=== PATIENT | male | born 1990 | race Hispanic/Latino ===

== ENCOUNTER 2020-08-02 09:26 | Inpatient (IN) | payer SELFPAY ==
[2020-08-02 10:05] LABS: Amphetamine Not Detected (NotDetected); Barbiturates Screen Not Detected (NotDetected); Benzodiazepine Screen Detected (NotDetected); Cocaine Metabolite Screen Not Detected (NotDetected); Methadone Not Detected (NotDetected); Methamphetamine Not Detected (NotDetected); Opiate Screen Not Detected (NotDetected); Oxycodone Screen Not Detected (NotDetected); Phencyclidine (PCP) Not Detected (NotDetected); THC/Cannabinoid Screen Not Detected (NotDetected); Tricyclic Screen Not Detected (NotDetected)
[2020-08-02 10:29] LABS: #Basophils 0.1 10x3/uL (0.0-0.2); #Eosinphils 0.1 10x3/uL (0.0-0.5); #Monocytes 0.8 10x3/uL (0.0-1.1); #Neutrophils 10.6 10x3/uL (1.5-8.4); %Basophils 0.6 % (0.0-2.0); %Eosinophils 0.6 % (0.0-6.0); %Lymphocytes 7.1 % (18.0-47.0); %Monocytes 6.6 % (0.0-10.0); %Neutrophils 84.6 % (40.0-75.0); Hemoglobin 8.1 g/dL (13.5-17.5); Mean Corpuscular HGB CONC 31.4 g/dL (32.0-36.0); Mean Corpuscular Hemoglobin 24.7 pg (27.0-33.0); Mean Corpuscular Volume 78.7 fl (81.2-95.1); Mean Platelet Volume 11.7 fl (7.4-10.4); Platelet Count 66 10x3/uL (150-450); RBC Distribution Width 24.7 % (11.5-14.5); Red Blood Cell (RBC) Count 3.28 10x6/uL (4.32-5.72); White Blood Cell (WBC) Count 12.5 10x3/uL (3.5-10.5)
[2020-08-02 10:44] LABS: INR-International Normal Ratio 1.2; PTT 30.3 sec (22.0-33.0); Prothrombin Time 13.5 sec (9.5-12.1)
[2020-08-02] MEDS ORDERED: Folic Acid 1 MG, Multivitamins, Adult 10 ML in Dextrose 5 %-0.45 % NaCl 1,000 ML IV SCH (10:45)
[2020-08-02] MEDS ORDERED: Thiamine HCl 200 MG/2 ML VIAL SLOW IVP SCH (10:45)
[2020-08-02 10:48] LABS: Acetaminophen Less than 6.0 mcg/mL (10.0-30.0); Alcohol 397 mg/dL (Less than 10); CK (CPK) 107 U/L (30-200); Salicylate Less than 8.0 mg/dL (15.0-30.0)
[2020-08-02 10:52] LABS: ALT (SGPT) 25 U/L (8-55); AST (SGOT) 226 U/L (5-34); Albumin 3.3 g/dL (3.5-5.0); Alkaline Phosphatase 340 U/L (40-110); Anion Gap 21 mmol/L (10-20); BUN (Urea Nitrogen) Less than 4 mg/dL (8.9-20.6); Bilirubin, Total 8.8 mg/dL (0.2-1.2); Calc. Creatinine Clearance 0 mL/min (70-130); Calcium 7.9 mg/dL (7.8-10.44); Carbon Dioxide 22 mmol/L (22-29); Chloride 94 mmol/L (98-107); Globulin 4.2 g/dL (2.4-3.5); Glucose 142 mg/dL (70-105); Lipase 54 U/L (8-78); Potassium 3.5 mmol/L (3.5-5.1); Protein, Total 7.5 g/dL (6.0-8.3); Sodium 133 mmol/L (136-145)
[2020-08-02] MEDS ORDERED: Piperacillin/Tazobactam 3.375 GM VIAL ONE (11:19)
[2020-08-02] MEDS ORDERED: metroNIDAZOLE 500 MG/100 ML BAG ONE (11:19)
[2020-08-02 11:23] LABS: Bilirubin 1+ (Negative); Blood, Urine Negative (Negative); Clarity Clear (Clear); Glucose, Urine (Dipstick) Normal (Negative); Ketone, Urine Negative (Negative); Leukocyte Negative (Negative); Nitrite Negative (Negative); Protein, Urine (Dipstick) Negative (Neg-Trace); Specific Gravity, Urine 1.005 (1.002-1.036)
[2020-08-02 12:13] LABS: Anisocytosis MODERATE=16-30 cells (100X) (0-5/hpf); Hypochromia SLIGHT = 6-15 cells (100X) (0-5/hpf); Microcytosis SLIGHT = 6-15 cells (100X) (0-5/hpf)
[2020-08-02 12:14] LABS: Platelet Morphology Comment Appears Decreased; Target Cells SLIGHT = 2-5 cells (100X) (0-1/hpf)
[2020-08-02] MEDS ORDERED: Calcium Carbonate 500 MG ChewTAB PO PRN (12:45)
[2020-08-02] MEDS ORDERED: Ondansetron PF 4 MG/2 ML Vial IVP PRN (12:45)
[2020-08-02] MEDS ORDERED: Senokot S 8.6-50 MG TAB PO PRN (12:45)
[2020-08-02] MEDS ORDERED: hydrALAZINE 20 MG/ML VIAL SLOW IVP PRN (12:57)
[2020-08-02 13:04] LABS: Lactic Acid 3.3 mmol/L (0.5-2.2)
[2020-08-02] MEDS ORDERED: Lorazepam 2 MG/ML VIAL ONE (14:58)
[2020-08-02] MEDS ORDERED: Sodium Chloride 0.9% 1,000 ML IV SCH (15:00)
[2020-08-02] MEDS: Lorazepam 2 MG/ML VIAL SLOW IVP PRN ×2 (16:04→21:18)
[2020-08-02 21:39] LABS: Lactic Acid 3.8 mmol/L (0.5-2.2)
[2020-08-02] MEDS ORDERED: Lorazepam 2 MG/ML VIAL SLOW IVP SCH (23:45)
[2020-08-03] MEDS ORDERED: Piperacillin/Tazobactam 4.5 GM in Sodium Chloride 0.9% 100 ML IVPB SCH (02:00)
[2020-08-03] MEDS: Lorazepam 2 MG/ML VIAL SLOW IVP PRN ×4 (02:10→23:54)
[2020-08-03 02:11] LABS: SARS-CoV-2 PCR by NAA Not Detected (NotDetected)
[2020-08-03 02:11] LABS: #Basophils 0.1 10x3/uL (0.0-0.2); #Eosinphils 0.1 10x3/uL (0.0-0.5); #Neutrophils 12.6 10x3/uL (1.5-8.4); %Basophils 0.5 % (0.0-2.0); %Eosinophils 0.3 % (0.0-6.0); %Lymphocytes 5.9 % (18.0-47.0); %Monocytes 6.8 % (0.0-10.0); %Neutrophils 85.8 % (40.0-75.0); Hemoglobin 6.8 g/dL (13.5-17.5); Mean Corpuscular HGB CONC 31.2 g/dL (32.0-36.0); Mean Corpuscular Volume 80.1 fl (81.2-95.1); Mean Platelet Volume 12.5 fl (7.4-10.4); Platelet Count 63 10x3/uL (150-450); RBC Distribution Width 24.8 % (11.5-14.5); Red Blood Cell (RBC) Count 2.72 10x6/uL (4.32-5.72); White Blood Cell (WBC) Count 14.7 10x3/uL (3.5-10.5)
[2020-08-03 02:15] LABS: ALT (SGPT) 28 U/L (8-55); AST (SGOT) 276 U/L (5-34); Albumin 3.3 g/dL (3.5-5.0); Alkaline Phosphatase 356 U/L (40-110); Anion Gap 22 mmol/L (10-20); BUN (Urea Nitrogen) Less than 4 mg/dL (8.9-20.6); Bilirubin, Total 11.4 mg/dL (0.2-1.2); Calc. Creatinine Clearance 216 mL/min (70-130); Calcium 7.7 mg/dL (7.8-10.44); Carbon Dioxide 18 mmol/L (22-29); Chloride 94 mmol/L (98-107); Globulin 4.3 g/dL (2.4-3.5); Glucose 121 mg/dL (70-105); Potassium 3.4 mmol/L (3.5-5.1); Protein, Total 7.6 g/dL (6.0-8.3); Sodium 131 mmol/L (136-145)
[2020-08-03] MEDS ORDERED: Sodium Chloride 0.9% 100 ML ONE (02:53)
[2020-08-03] MEDS ORDERED: Piperacillin/Tazobactam 4.5 GM VIAL ONE (03:10)
[2020-08-03] MEDS ORDERED: Lorazepam 2 MG/ML VIAL SLOW IVP SCH ×2 (03:15→08:15)
[2020-08-03] MEDS ORDERED: Potassium Chloride 20 MEQ TAB PO SCH (03:30)
[2020-08-03] MEDS ORDERED: Lactated Ringer's 1,000 ML IV SCH (03:30)
[2020-08-03] MEDS ORDERED: Metoprolol Tartrate 5 MG/5 ML VIAL IVP SCH (04:30)
[2020-08-03 05:11] LABS: #Basophils 0.1 10x3/uL (0.0-0.2); #Monocytes 0.8 10x3/uL (0.0-1.1); #Neutrophils 11.4 10x3/uL (1.5-8.4); %Basophils 0.4 % (0.0-2.0); %Eosinophils 0.1 % (0.0-6.0); %Lymphocytes 6.1 % (18.0-47.0); %Neutrophils 86.3 % (40.0-75.0); Mean Corpuscular HGB CONC 31.3 g/dL (32.0-36.0); Mean Corpuscular Hemoglobin 24.6 pg (27.0-33.0); Mean Corpuscular Volume 78.8 fl (81.2-95.1); Mean Platelet Volume 12.6 fl (7.4-10.4); Platelet Count 60 10x3/uL (150-450); RBC Distribution Width 25.2 % (11.5-14.5); Red Blood Cell (RBC) Count 3.25 10x6/uL (4.32-5.72); White Blood Cell (WBC) Count 13.2 10x3/uL (3.5-10.5)
[2020-08-03 05:21] LABS: ALT (SGPT) 26 U/L (8-55); AST (SGOT) 298 U/L (5-34); Albumin 3.2 g/dL (3.5-5.0); Alkaline Phosphatase 344 U/L (40-110); Anion Gap 21 mmol/L (10-20); BUN (Urea Nitrogen) Less than 4 mg/dL (8.9-20.6); CRP (Inflammatory) 6.46 mg/dL (= or < 0.5); Calc. Creatinine Clearance 213 mL/min (70-130); Calcium 7.9 mg/dL (7.8-10.44); Carbon Dioxide 18 mmol/L (22-29); Cardiac Risk 27.8 (Less than 4.5); Chloride 97 mmol/L (98-107); Globulin 4.3 g/dL (2.4-3.5); Glucose 123 mg/dL (70-105); HDL Cholesterol 8 mg/dL (>60 Neg Risk); Iron 92 ug/dL (65-175); Iron Binding Capacity, Total 203 mcg/dL (261-462); LDL Cholesterol, Calculated 150 mg/dL; Magnesium 1.3 mg/dL (1.6-2.6); Potassium 3.7 mmol/L (3.5-5.1); Protein, Total 7.5 g/dL (6.0-8.3); Sodium 132 mmol/L (136-145)
[2020-08-03 05:27] LABS: Cholesterol 222 mg/dl (< 200 Desired); Triglycerides 318 mg/dL (Less than 150)
[2020-08-03 08:09] LABS: Lactic Acid 2.9 mmol/L (0.5-2.2)
[2020-08-03] MEDS: Thiamine 100 MG TAB PO SCH (08:40)
[2020-08-03] MEDS: Folic Acid 1 MG TAB PO SCH (08:40)
[2020-08-03] MEDS: Piperacillin/Tazobactam 3.375 GM in Sodium Chloride 0.9% 100 ML IVPB SCH ×3 (08:42→23:53)
[2020-08-03 08:47] LABS: Ferritin 143.02 ng/mL (22-322)
[2020-08-03 08:52] LABS: HBSAg Index 0.13 S/CO (0-0.99); Hep B Surf Ag Non-Reactive S/CO (NonReactive)
[2020-08-03 08:56] LABS: Hemoglobin 7.5 g/dL (13.5-17.5)
[2020-08-03 09:00] LABS: INR-International Normal Ratio 1.3; Prothrombin Time 14.1 sec (9.5-12.1)
[2020-08-03] MEDS: Acetaminophen 325 MG TAB PO PRN (09:13)
[2020-08-03] MEDS: chlordiazePOXIDE HCl 25 MG CAP PO SCH ×3 (09:30→20:44)
[2020-08-03] MEDS: Multivit, Therapeutic 1 TAB PO SCH (09:33)
[2020-08-03] MEDS: Pantoprazole 80 MG in Sodium Chloride 0.9% 100 ML IVPB SCH ×2 (10:19→19:59)
[2020-08-03] MEDS: Sodium Chloride 0.9% 1,000 ML IV SCH ×2 (10:21→19:47)
[2020-08-03 12:59] LABS: Hemoglobin 7.4 g/dL (13.5-17.5)
[2020-08-03] MEDS ORDERED: Vancomycin HCl 1.5 GM in Sodium Chloride 0.9% 250 ML 300 ML IVPB SCH (13:00)
[2020-08-03] MEDS: VANCOMYCIN 1.25 GM/250 ML BAG 1.25 GM in Premix Bag 1 BAG IVPB SCH ×2 (13:36→20:45)
[2020-08-03 15:04] LABS: Hep A IgM AB Non-Reactive (NonReactive); Hep A IgM S/CO 0.39 S/CO (0-0.79); Hep C IgG Ab Non-Reactive (NonReactive); Hep C Index 0.08 S/CO (0-0.79); Hepatitis B Core IgM Abs Non-Reactive (NonReactive)
[2020-08-04] MEDS: Lorazepam 2 MG/ML VIAL SLOW IVP PRN ×4 (03:27→19:06)
[2020-08-04 04:38] LABS: Vancomycin, Trough 9.1 ug/mL
[2020-08-04 04:40] LABS: CRP (Inflammatory) 10.73 mg/dL (= or < 0.5); Magnesium 1.5 mg/dL (1.6-2.6)
[2020-08-04 04:41] LABS: #Basophils 0.1 10x3/uL (0.0-0.2); #Eosinphils 0.1 10x3/uL (0.0-0.5); #Monocytes 0.9 10x3/uL (0.0-1.1); #Neutrophils 11.7 10x3/uL (1.5-8.4); %Basophils 0.7 % (0.0-2.0); %Eosinophils 0.6 % (0.0-6.0); %Lymphocytes 5.4 % (18.0-47.0); %Monocytes 6.8 % (0.0-10.0); %Neutrophils 85.5 % (40.0-75.0); ALT (SGPT) 23 U/L (8-55); AST (SGOT) 177 U/L (5-34); Albumin 2.8 g/dL (3.5-5.0); Alkaline Phosphatase 245 U/L (40-110); Anion Gap 17 mmol/L (10-20); BUN (Urea Nitrogen) Less than 4 mg/dL (8.9-20.6); Bilirubin, Total 14.7 mg/dL (0.2-1.2); Calc. Creatinine Clearance 216 mL/min (70-130); Calcium 7.6 mg/dL (7.8-10.44); Carbon Dioxide 21 mmol/L (22-29); Globulin 3.8 g/dL (2.4-3.5); Glucose 130 mg/dL (70-105); Hemoglobin 7.2 g/dL (13.5-17.5); Lipase 36 U/L (8-78); Mean Corpuscular HGB CONC 29.1 g/dL (32.0-36.0); Mean Corpuscular Hemoglobin 24.8 pg (27.0-33.0); Mean Corpuscular Volume 85.2 fl (81.2-95.1); Mean Platelet Volume 12.5 fl (7.4-10.4); Platelet Count 63 10x3/uL (150-450); Potassium 3.5 mmol/L (3.5-5.1); Protein, Total 6.6 g/dL (6.0-8.3); RBC Distribution Width 26.3 % (11.5-14.5); Sodium 140 mmol/L (136-145); White Blood Cell (WBC) Count 13.7 10x3/uL (3.5-10.5)
[2020-08-04 04:42] LABS: Chloride 106 mmol/L (98-107)
[2020-08-04 04:43] LABS: INR-International Normal Ratio 1.5; Prothrombin Time 16.6 sec (9.5-12.1)
[2020-08-04] MEDS: VANCOMYCIN 1.25 GM/250 ML BAG 1.25 GM in Premix Bag 1 BAG IVPB SCH (05:51)
[2020-08-04] MEDS: Sodium Chloride 0.9% 1,000 ML IV SCH (05:53)
[2020-08-04] MEDS ORDERED: Vancomycin HCl 500 MG in Sodium Chloride 0.9% 100 ML IVPB SCH ×2 (06:30→08:00)
[2020-08-04] MEDS ORDERED: PHOS-NAK 1 PKT PACK PO SCH (06:30)
[2020-08-04] MEDS: Pantoprazole 80 MG in Sodium Chloride 0.9% 100 ML IVPB SCH (06:54)
[2020-08-04] MEDS: Multivit, Therapeutic 1 TAB PO SCH (08:15)
[2020-08-04] MEDS: Folic Acid 1 MG TAB PO SCH (08:15)
[2020-08-04] MEDS: Thiamine 100 MG TAB PO SCH (08:15)
[2020-08-04] MEDS: chlordiazePOXIDE HCl 25 MG CAP PO SCH ×3 (08:15→20:29)
[2020-08-04] MEDS: Piperacillin/Tazobactam 3.375 GM in Sodium Chloride 0.9% 100 ML IVPB SCH ×2 (08:37→16:04)
[2020-08-04] MEDS: VANCOMYCIN 1.75 GM in Sodium Chloride 0.9% 500 ML IVPB SCH ×2 (12:51→21:55)
[2020-08-04] MEDS ORDERED: Ketorolac Tromethamine 30 MG/ML VIAL IVP PRN (14:56)
[2020-08-04] MEDS ORDERED: Magnesium 2 GM/50 ML 2 GM in Premix Bag 1 BAG IVPB SCH (15:00)
[2020-08-04] MEDS: Acetaminophen 325 MG TAB PO PRN (20:30)
[2020-08-05] MEDS: Lorazepam 2 MG/ML VIAL SLOW IVP PRN ×5 (00:35→13:00)
[2020-08-05] MEDS: Piperacillin/Tazobactam 3.375 GM in Sodium Chloride 0.9% 100 ML IVPB SCH ×3 (01:18→15:59)
[2020-08-05] MEDS: VANCOMYCIN 1.75 GM in Sodium Chloride 0.9% 500 ML IVPB SCH (05:00)
[2020-08-05 05:24] LABS: #Basophils 0.1 10x3/uL (0.0-0.2); #Eosinphils 0.2 10x3/uL (0.0-0.5); #Monocytes 1.1 10x3/uL (0.0-1.1); #Neutrophils 10.9 10x3/uL (1.5-8.4); %Basophils 0.4 % (0.0-2.0); %Eosinophils 1.6 % (0.0-6.0); %Lymphocytes 8.3 % (18.0-47.0); %Monocytes 7.9 % (0.0-10.0); %Neutrophils 81.1 % (40.0-75.0); Mean Corpuscular HGB CONC 29.3 g/dL (32.0-36.0); Mean Corpuscular Hemoglobin 25.5 pg (27.0-33.0); Mean Corpuscular Volume 86.9 fl (81.2-95.1); Mean Platelet Volume 12.8 fl (7.4-10.4); Platelet Count 99 10x3/uL (150-450); RBC Distribution Width 26.8 % (11.5-14.5); Red Blood Cell (RBC) Count 2.75 10x6/uL (4.32-5.72); White Blood Cell (WBC) Count 13.4 10x3/uL (3.5-10.5)
[2020-08-05 05:28] LABS: Vancomycin, Trough 22.2 ug/mL
[2020-08-05] MEDS ORDERED: Lorazepam 2 MG/ML VIAL SLOW IVP SCH (05:30)
[2020-08-05 05:31] LABS: ALT (SGPT) 20 U/L (8-55); AST (SGOT) 116 U/L (5-34); Albumin 2.8 g/dL (3.5-5.0); Alkaline Phosphatase 207 U/L (40-110); Anion Gap 15 mmol/L (10-20); BUN (Urea Nitrogen) Less than 4 mg/dL (8.9-20.6); Bilirubin, Total 17.5 mg/dL (0.2-1.2); Calc. Creatinine Clearance 198 mL/min (70-130); Calcium 7.5 mg/dL (7.8-10.44); Carbon Dioxide 21 mmol/L (22-29); Chloride 103 mmol/L (98-107); Globulin 3.8 g/dL (2.4-3.5); Glucose 126 mg/dL (70-105); Potassium 3.4 mmol/L (3.5-5.1); Protein, Total 6.6 g/dL (6.0-8.3); Sodium 136 mmol/L (136-145)
[2020-08-05 05:40] LABS: INR-International Normal Ratio 1.5; Prothrombin Time 16.4 sec (9.5-12.1)
[2020-08-05 06:01] LABS: Magnesium 1.7 mg/dL (1.6-2.6); Phosphorus Less than 1.0 mg/dL (2.3-4.7)
[2020-08-05] MEDS ORDERED: Diazepam 10 MG/2 ML SYRINGE IVP SCH (06:30)
[2020-08-05] MEDS ORDERED: Sodium Chloride 0.9% 50 ML ONE (07:24)
[2020-08-05] MEDS ORDERED: Phytonadione 10 MG/ML AMP ONE (07:24)
[2020-08-05] MEDS ORDERED: Sodium Phosphate 15 MMOL in Sodium Chloride 0.9% 250 ML 250 ML IVPB SCH (07:30)
[2020-08-05] MEDS: Multivit, Therapeutic 1 TAB PO SCH (08:03)
[2020-08-05] MEDS: Thiamine 100 MG TAB PO SCH (08:03)
[2020-08-05] MEDS: prednisoLONE 15 MG/5 ML UDCUP PO SCH (08:03)
[2020-08-05] MEDS: Folic Acid 1 MG TAB PO SCH (08:04)
[2020-08-05] MEDS: chlordiazePOXIDE HCl 25 MG CAP PO SCH ×3 (08:04→20:38)
[2020-08-05] MEDS ORDERED: Haloperidol Lactate 5 MG/ML VIAL ONE (09:30)
[2020-08-05] MEDS: Haloperidol Lactate 5 MG/ML VIAL IM PRN ×4 (09:34→20:37)
[2020-08-05] MEDS: Phytonadione 10 MG, Admixture Fee 1 EACH in Sodium Chloride 0.9% 50 ML IVPB SCH (10:49)
[2020-08-05] MEDS: Vancomycin 1.5 GRAM/300 ML BAG 1.5 GM in Premix Bag 1 BAG IVPB SCH (17:32)
[2020-08-06] MEDS: Haloperidol Lactate 5 MG/ML VIAL IM PRN ×3 (00:30→22:03)
[2020-08-06] MEDS: Piperacillin/Tazobactam 3.375 GM in Sodium Chloride 0.9% 100 ML IVPB SCH ×3 (00:36→15:19)
[2020-08-06] MEDS: Lorazepam 2 MG/ML VIAL SLOW IVP PRN ×2 (01:50→23:50)
[2020-08-06] MEDS: Vancomycin 1.5 GRAM/300 ML BAG 1.5 GM in Premix Bag 1 BAG IVPB SCH ×2 (01:50→10:37)
[2020-08-06 05:34] LABS: #Eosinphils 0.1 10x3/uL (0.0-0.5); #Monocytes 1.2 10x3/uL (0.0-1.1); #Neutrophils 11.3 10x3/uL (1.5-8.4); %Basophils 0.3 % (0.0-2.0); %Eosinophils 0.7 % (0.0-6.0); %Lymphocytes 7.4 % (18.0-47.0); %Monocytes 8.8 % (0.0-10.0); %Neutrophils 81.8 % (40.0-75.0); Hemoglobin 7.1 g/dL (13.5-17.5); Mean Corpuscular HGB CONC 28.3 g/dL (32.0-36.0); Mean Corpuscular Hemoglobin 25.5 pg (27.0-33.0); Mean Corpuscular Volume 90.3 fl (81.2-95.1); Mean Platelet Volume 12.2 fl (7.4-10.4); Platelet Count 143 10x3/uL (150-450); RBC Distribution Width 27.8 % (11.5-14.5); Red Blood Cell (RBC) Count 2.78 10x6/uL (4.32-5.72); White Blood Cell (WBC) Count 13.8 10x3/uL (3.5-10.5)
[2020-08-06 05:42] LABS: Anion Gap 20 mmol/L (10-20); Globulin 3.4 g/dL (2.4-3.5)
[2020-08-06 05:44] LABS: ALT (SGPT) 25 U/L (8-55); AST (SGOT) 122 U/L (5-34); Albumin 2.6 g/dL (3.5-5.0); Alkaline Phosphatase 176 U/L (40-110); BUN (Urea Nitrogen) 5 mg/dL (8.9-20.6); Bilirubin, Total 17.4 mg/dL (0.2-1.2); Calc. Creatinine Clearance 207 mL/min (70-130); Calcium 7.4 mg/dL (7.8-10.44); Carbon Dioxide 20 mmol/L (22-29); Chloride 106 mmol/L (98-107); Glucose 111 mg/dL (70-105); Potassium 3.5 mmol/L (3.5-5.1); Sodium 142 mmol/L (136-145)
[2020-08-06 05:47] LABS: INR-International Normal Ratio 1.3; PTT 24.5 sec (22.0-33.0); Prothrombin Time 14.6 sec (9.5-12.1)
[2020-08-06] MEDS ORDERED: Sodium Phosphate 30 MMOL in Sodium Chloride 0.9% 250 ML 250 ML IVPB SCH (06:30)
[2020-08-06] MEDS: Folic Acid 1 MG TAB PO SCH (09:01)
[2020-08-06] MEDS: chlordiazePOXIDE HCl 25 MG CAP PO SCH ×3 (09:01→21:22)
[2020-08-06] MEDS: Multivit, Therapeutic 1 TAB PO SCH (09:01)
[2020-08-06] MEDS: Thiamine 100 MG TAB PO SCH (09:01)
[2020-08-06] MEDS: prednisoLONE 15 MG/5 ML UDCUP PO SCH (09:04)
[2020-08-06] MEDS ORDERED: Phytonadione 10 MG/ML AMP ONE (09:45)
[2020-08-06] MEDS ORDERED: Sodium Chloride 0.9% 50 ML ONE (09:45)
[2020-08-06] MEDS: Phytonadione 10 MG, Admixture Fee 1 EACH in Sodium Chloride 0.9% 50 ML IVPB SCH (09:56)
[2020-08-06 16:25] LABS: Vancomycin, Trough 24.7 ug/mL
[2020-08-06 17:21] LABS: EliA Vaculitis New Method **** NEW METHOD ****; Mitochondrial Ab 1.6 U/mL (<4 Negative)
[2020-08-07] MEDS: Piperacillin/Tazobactam 3.375 GM in Sodium Chloride 0.9% 100 ML IVPB SCH ×4 (00:15→23:40)
[2020-08-07] MEDS: Lorazepam 2 MG/ML VIAL SLOW IVP PRN (02:16)
[2020-08-07 05:13] LABS: #Monocytes 1.1 10x3/uL (0.0-1.1); #Neutrophils 11.1 10x3/uL (1.5-8.4); %Basophils 0.2 % (0.0-2.0); %Eosinophils 0.1 % (0.0-6.0); %Lymphocytes 7.4 % (18.0-47.0); %Monocytes 8.5 % (0.0-10.0); %Neutrophils 82.5 % (40.0-75.0); Hemoglobin 7.9 g/dL (13.5-17.5); Mean Corpuscular HGB CONC 29.5 g/dL (32.0-36.0); Mean Corpuscular Hemoglobin 26.1 pg (27.0-33.0); Mean Corpuscular Volume 88.4 fl (81.2-95.1); Mean Platelet Volume 12.1 fl (7.4-10.4); Platelet Count 222 10x3/uL (150-450); RBC Distribution Width 28.4 % (11.5-14.5); Red Blood Cell (RBC) Count 3.03 10x6/uL (4.32-5.72); White Blood Cell (WBC) Count 13.5 10x3/uL (3.5-10.5)
[2020-08-07 05:31] LABS: ALT (SGPT) 31 U/L (8-55); AST (SGOT) 123 U/L (5-34); Albumin 2.7 g/dL (3.5-5.0); Alkaline Phosphatase 174 U/L (40-110); Anion Gap 15 mmol/L (10-20); BUN (Urea Nitrogen) 4 mg/dL (8.9-20.6); Bilirubin, Total 17.2 mg/dL (0.2-1.2); Calc. Creatinine Clearance 213 mL/min (70-130); Calcium 7.8 mg/dL (7.8-10.44); Carbon Dioxide 23 mmol/L (22-29); Chloride 107 mmol/L (98-107); Globulin 3.5 g/dL (2.4-3.5); Glucose 134 mg/dL (70-105); Protein, Total 6.2 g/dL (6.0-8.3); Sodium 142 mmol/L (136-145)
[2020-08-07] MEDS ORDERED: Vancomycin 1.5 GRAM/300 ML BAG 1.5 GM in Premix Bag 1 BAG IVPB SCH (06:00)
[2020-08-07 06:01] LABS: INR-International Normal Ratio 1.2; PTT 25.2 sec (22.0-33.0); Prothrombin Time 13.6 sec (9.5-12.1)
[2020-08-07] MEDS: Haloperidol Lactate 5 MG/ML VIAL IM PRN (06:18)
[2020-08-07 08:47] LABS: Phosphorus Less than 1.0 mg/dL (2.3-4.7)
[2020-08-07] MEDS: Phytonadione 10 MG, Admixture Fee 1 EACH in Sodium Chloride 0.9% 50 ML IVPB SCH (09:38)
[2020-08-07] MEDS: Multivit, Therapeutic 1 TAB PO SCH (09:39)
[2020-08-07] MEDS: Thiamine 100 MG TAB PO SCH (09:39)
[2020-08-07] MEDS: Potassium Chloride 20 MEQ TAB PO SCH ×2 (09:39→15:59)
[2020-08-07] MEDS: Folic Acid 1 MG TAB PO SCH (09:39)
[2020-08-07] MEDS: chlordiazePOXIDE HCl 25 MG CAP PO SCH ×3 (09:39→22:00)
[2020-08-07] MEDS: prednisoLONE 15 MG/5 ML UDCUP PO SCH (09:40)
[2020-08-07] MEDS ORDERED: Potassium Phosphate 30 MMOL in Sodium Chloride 0.9% 250 ML 250 ML IVPB SCH (12:00)
[2020-08-07 18:37] LABS: Smooth Muscle Total ABS 6 Units (0-19)
[2020-08-07] MEDS: Enoxaparin Sodium 40 MG/0.4 ML SYRINGE SC SCH (22:00)
[2020-08-08] MEDS: Haloperidol Lactate 5 MG/ML VIAL IM PRN (02:15)
[2020-08-08 04:46] LABS: #Monocytes 1.3 10x3/uL (0.0-1.1); #Neutrophils 12.1 10x3/uL (1.5-8.4); %Basophils 0.2 % (0.0-2.0); %Eosinophils 0.1 % (0.0-6.0); %Monocytes 9.1 % (0.0-10.0); %Neutrophils 83.8 % (40.0-75.0); Mean Corpuscular HGB CONC 29.2 g/dL (32.0-36.0); Mean Corpuscular Hemoglobin 26.1 pg (27.0-33.0); Mean Corpuscular Volume 89.5 fl (81.2-95.1); Mean Platelet Volume 11.9 fl (7.4-10.4); Platelet Count 290 10x3/uL (150-450); RBC Distribution Width 29.9 % (11.5-14.5); Red Blood Cell (RBC) Count 3.06 10x6/uL (4.32-5.72); White Blood Cell (WBC) Count 14.5 10x3/uL (3.5-10.5)
[2020-08-08 05:08] LABS: ALT (SGPT) 39 U/L (8-55); AST (SGOT) 125 U/L (5-34); Albumin 2.7 g/dL (3.5-5.0); Alkaline Phosphatase 159 U/L (40-110); Anion Gap 15 mmol/L (10-20); BUN (Urea Nitrogen) 6 mg/dL (8.9-20.6); Bilirubin, Total 16.4 mg/dL (0.2-1.2); Calc. Creatinine Clearance 234 mL/min (70-130); Calcium 7.9 mg/dL (7.8-10.44); Carbon Dioxide 22 mmol/L (22-29); Chloride 109 mmol/L (98-107); Globulin 3.4 g/dL (2.4-3.5); Glucose 120 mg/dL (70-105); Potassium 3.5 mmol/L (3.5-5.1); Protein, Total 6.1 g/dL (6.0-8.3); Sodium 142 mmol/L (136-145)
[2020-08-08 05:10] LABS: Phosphorus 1.2 mg/dL (2.3-4.7)
[2020-08-08 05:15] LABS: INR-International Normal Ratio 1.3; PTT 26.6 sec (22.0-33.0); Prothrombin Time 14.2 sec (9.5-12.1)
[2020-08-08] MEDS ORDERED: Potassium Phosphate 30 MMOL in Sodium Chloride 0.9% 250 ML 250 ML IVPB SCH (07:30)
[2020-08-08] MEDS: Potassium Chloride 20 MEQ TAB PO SCH ×2 (08:42→17:22)
[2020-08-08] MEDS: Folic Acid 1 MG TAB PO SCH (08:42)
[2020-08-08] MEDS: Thiamine 100 MG TAB PO SCH (08:42)
[2020-08-08] MEDS: chlordiazePOXIDE HCl 25 MG CAP PO SCH ×3 (08:42→22:31)
[2020-08-08] MEDS: prednisoLONE 15 MG/5 ML UDCUP PO SCH (08:42)
[2020-08-08] MEDS: Multivit, Therapeutic 1 TAB PO SCH (08:42)
[2020-08-08] MEDS: Phytonadione 10 MG, Admixture Fee 1 EACH in Sodium Chloride 0.9% 50 ML IVPB SCH (08:43)
[2020-08-08] MEDS: Piperacillin/Tazobactam 3.375 GM in Sodium Chloride 0.9% 100 ML IVPB SCH ×3 (08:43→23:00)
[2020-08-08 17:57] LABS: Vancomycin, Trough Less than 1.1 ug/mL
[2020-08-08] MEDS ORDERED: Guaifenesin DM 100-10/5 ML UDCUP PO PRN (22:25)
[2020-08-08] MEDS: Enoxaparin Sodium 40 MG/0.4 ML SYRINGE SC SCH (22:31)
[2020-08-08] MEDS: Lorazepam 2 MG/ML VIAL SLOW IVP PRN (22:45)
[2020-08-09] MEDS: Lorazepam 2 MG/ML VIAL SLOW IVP PRN ×4 (03:56→21:25)
[2020-08-09 05:25] LABS: ALT (SGPT) 48 U/L (8-55); AST (SGOT) 136 U/L (5-34); Albumin 2.8 g/dL (3.5-5.0); Alkaline Phosphatase 158 U/L (40-110); Anion Gap 15 mmol/L (10-20); BUN (Urea Nitrogen) 9 mg/dL (8.9-20.6); Bilirubin, Total 16.9 mg/dL (0.2-1.2); Calc. Creatinine Clearance 205 mL/min (70-130); Calcium 8.3 mg/dL (7.8-10.44); Carbon Dioxide 23 mmol/L (22-29); Chloride 107 mmol/L (98-107); Globulin 3.4 g/dL (2.4-3.5); Glucose 126 mg/dL (70-105); Potassium 4.1 mmol/L (3.5-5.1); Protein, Total 6.2 g/dL (6.0-8.3); Sodium 141 mmol/L (136-145)
[2020-08-09 06:23] LABS: INR-International Normal Ratio 1.3; PTT 26.1 sec (22.0-33.0)
[2020-08-09] MEDS: chlordiazePOXIDE HCl 25 MG CAP PO SCH ×2 (08:16→14:16)
[2020-08-09] MEDS ORDERED: Phytonadione 10 MG/ML AMP ONE (08:19)
[2020-08-09] MEDS ORDERED: Sodium Chloride 0.9% 50 ML ONE (08:19)
[2020-08-09] MEDS: Thiamine 100 MG TAB PO SCH (08:24)
[2020-08-09] MEDS: Multivit, Therapeutic 1 TAB PO SCH (08:24)
[2020-08-09] MEDS: Phytonadione 10 MG, Admixture Fee 1 EACH in Sodium Chloride 0.9% 50 ML IVPB SCH (08:24)
[2020-08-09] MEDS: Potassium Chloride 20 MEQ TAB PO SCH ×2 (08:24→16:00)
[2020-08-09] MEDS: Folic Acid 1 MG TAB PO SCH (08:24)
[2020-08-09] MEDS: Piperacillin/Tazobactam 3.375 GM in Sodium Chloride 0.9% 100 ML IVPB SCH ×2 (08:24→16:00)
[2020-08-09] MEDS: prednisoLONE 15 MG/5 ML UDCUP PO SCH (08:25)
[2020-08-09] MEDS: Enoxaparin Sodium 40 MG/0.4 ML SYRINGE SC SCH (20:04)
[2020-08-09] MEDS: Guaifenesin DM 100-10/5 ML UDCUP PO PRN (21:16)
[2020-08-10] MEDS: prednisoLONE 15 MG/5 ML UDCUP PO SCH (06:45)
[2020-08-10] MEDS: Multivit, Therapeutic 1 TAB PO SCH (11:49)
[2020-08-10] MEDS: Potassium Chloride 20 MEQ TAB PO SCH ×2 (11:49→16:34)
[2020-08-10] MEDS: Phytonadione 10 MG, Admixture Fee 1 EACH in Sodium Chloride 0.9% 50 ML IVPB SCH (11:49)
[2020-08-10] MEDS: Thiamine 100 MG TAB PO SCH (11:49)
[2020-08-10] MEDS: Folic Acid 1 MG TAB PO SCH (11:49)
[2020-08-10] MEDS: Enoxaparin Sodium 40 MG/0.4 ML SYRINGE SC SCH (21:30)
[2020-08-10] MEDS: Guaifenesin DM 100-10/5 ML UDCUP PO PRN (21:31)
[2020-08-11 06:16] LABS: ALT (SGPT) 78 U/L (8-55); AST (SGOT) 161 U/L (5-34); Alkaline Phosphatase 185 U/L (40-110); Anion Gap 17 mmol/L (10-20); BUN (Urea Nitrogen) 13 mg/dL (8.9-20.6); Bilirubin, Total 17.9 mg/dL (0.2-1.2); Calc. Creatinine Clearance 171 mL/min (70-130); Calcium 8.9 mg/dL (7.8-10.44); Carbon Dioxide 23 mmol/L (22-29); Chloride 101 mmol/L (98-107); Globulin 3.8 g/dL (2.4-3.5); Glucose 119 mg/dL (70-105); Protein, Total 6.8 g/dL (6.0-8.3); Sodium 137 mmol/L (136-145)
[2020-08-11 07:29] LABS: INR-International Normal Ratio 1.2; Prothrombin Time 13.5 sec (9.5-12.1)
[2020-08-11 07:39] LABS: #Eosinphils 0.1 10x3/uL (0.0-0.5); #Monocytes 1.2 10x3/uL (0.0-1.1); #Neutrophils 14.7 10x3/uL (1.5-8.4); %Basophils 0.1 % (0.0-2.0); %Eosinophils 0.4 % (0.0-6.0); %Lymphocytes 5.3 % (18.0-47.0); %Monocytes 6.9 % (0.0-10.0); %Neutrophils 86.5 % (40.0-75.0); Hemoglobin 9.2 g/dL (13.5-17.5); Mean Corpuscular HGB CONC 30.5 g/dL (32.0-36.0); Mean Corpuscular Hemoglobin 26.9 pg (27.0-33.0); Mean Corpuscular Volume 88.3 fl (81.2-95.1); Mean Platelet Volume 12.5 fl (7.4-10.4); Platelet Count 406 10x3/uL (150-450); RBC Distribution Width 29.4 % (11.5-14.5); Red Blood Cell (RBC) Count 3.42 10x6/uL (4.32-5.72); White Blood Cell (WBC) Count 16.9 10x3/uL (3.5-10.5)
[2020-08-11] MEDS: Potassium Chloride 20 MEQ TAB PO SCH ×2 (08:32→15:58)
[2020-08-11] MEDS: Folic Acid 1 MG TAB PO SCH (08:32)
[2020-08-11] MEDS: prednisoLONE 15 MG/5 ML UDCUP PO SCH (08:32)
[2020-08-11] MEDS: Multivit, Therapeutic 1 TAB PO SCH (08:32)
[2020-08-11] MEDS: Thiamine 100 MG TAB PO SCH (08:32)
[2020-08-11] MEDS: Sodium Chloride 0.9% 50 ML ONE ×4 (08:33→09:00)
[2020-08-11] MEDS: Phytonadione 10 MG/ML AMP ONE ×4 (08:37→08:59)
[2020-08-11] MEDS: Phytonadione 10 MG, Admixture Fee 1 EACH in Sodium Chloride 0.9% 50 ML IVPB SCH (10:23)
[2020-08-11 15:13] LABS: Alpha-1-Antitrypsin 265 mg/dL (95-164)
[2020-08-11] MEDS ORDERED: Lactated Ringer's 500 ML IV SCH (18:30)
[2020-08-11] MEDS: chlordiazePOXIDE HCl 25 MG CAP PO PRN (21:30)
[2020-08-11] MEDS: Enoxaparin Sodium 40 MG/0.4 ML SYRINGE SC SCH (21:30)
[2020-08-12 06:22] LABS: Hemoglobin 8.5 g/dL (13.5-17.5); Mean Corpuscular HGB CONC 28.5 g/dL (32.0-36.0); Mean Corpuscular Hemoglobin 26.2 pg (27.0-33.0); Mean Corpuscular Volume 91.7 fl (81.2-95.1); Mean Platelet Volume 12.7 fl (7.4-10.4); Platelet Count 390 10x3/uL (150-450); RBC Distribution Width 28.6 % (11.5-14.5); Red Blood Cell (RBC) Count 3.25 10x6/uL (4.32-5.72); White Blood Cell (WBC) Count 23.3 10x3/uL (3.5-10.5)
[2020-08-12 06:23] LABS: Phosphorus 2.6 mg/dL (2.3-4.7)
[2020-08-12 06:25] LABS: ALT (SGPT) 83 U/L (8-55); AST (SGOT) 168 U/L (5-34); Alkaline Phosphatase 172 U/L (40-110); Anion Gap 17 mmol/L (10-20); BUN (Urea Nitrogen) 11 mg/dL (8.9-20.6); Bilirubin, Total 19.3 mg/dL (0.2-1.2); Calc. Creatinine Clearance 187 mL/min (70-130); Calcium 9.1 mg/dL (7.8-10.44); Carbon Dioxide 22 mmol/L (22-29); Chloride 104 mmol/L (98-107); Globulin 3.8 g/dL (2.4-3.5); Glucose 114 mg/dL (70-105); Magnesium 2.3 mg/dL (1.6-2.6); Potassium 3.8 mmol/L (3.5-5.1); Protein, Total 6.8 g/dL (6.0-8.3); Sodium 139 mmol/L (136-145)
[2020-08-12 06:33] LABS: INR-International Normal Ratio 1.2; Prothrombin Time 13.5 sec (9.5-12.1)
[2020-08-12] MEDS: chlordiazePOXIDE HCl 25 MG CAP PO PRN (06:42)
[2020-08-12 07:03] LABS: Band 17 % (5-11); Lymphocytes 6 % (21-51); Monocytes 7 % (0-10); Neutrophil 70 % (42-75)
[2020-08-12 07:04] LABS: Hypochromia SLIGHT = 6-15 cells (100X) (0-5/hpf); Microcytosis SLIGHT = 6-15 cells (100X) (0-5/hpf); Polychromasia SLIGHT = 2-3 cells (100X) (0-2/hpf)
[2020-08-12 07:05] LABS: Anisocytosis MODERATE=16-30 cells (100X) (0-5/hpf); Macrocytosis SLIGHT = 6-15 cells (100X) (0-5/hpf); Target Cells MODERATE= 6-15 cells (100X) (0-1/hpf)
[2020-08-12 07:06] LABS: Large Platelets SLIGHT; Platelet Morphology Comment Appears Adequate
[2020-08-12 07:07] LABS: MDiff Complete? YES; Manual Diff?? YES
[2020-08-12] MEDS: prednisoLONE 15 MG/5 ML UDCUP PO SCH (08:14)
[2020-08-12] MEDS: Multivit, Therapeutic 1 TAB PO SCH (08:15)
[2020-08-12] MEDS: Thiamine 100 MG TAB PO SCH (08:15)
[2020-08-12] MEDS: Folic Acid 1 MG TAB PO SCH (08:15)
[2020-08-12] MEDS: Potassium Chloride 20 MEQ TAB PO SCH ×2 (08:15→16:25)
[2020-08-12] MEDS: Phytonadione 10 MG, Admixture Fee 1 EACH in Sodium Chloride 0.9% 50 ML IVPB SCH (08:43)
[2020-08-12] MEDS: Acetaminophen 325 MG TAB PO PRN (10:30)
[2020-08-12] MEDS: Guaifenesin DM 100-10/5 ML UDCUP PO PRN (10:30)
[2020-08-12] MEDS ORDERED: Dextrose 5% in Water 1,000 ML IV PRN (12:27)
[2020-08-12] MEDS ORDERED: Dextrose 50% Abboject 50 ML SYRINGE SLOW IVP PRN (12:27)
[2020-08-12] MEDS: HumaLOG 300 UNITS/3 ML VIAL SC PRN ×2 (16:25→21:00)
[2020-08-12 17:01] LABS: Lactic Acid 3.3 mmol/L (0.5-2.2)
[2020-08-12] MEDS ORDERED: Piperacillin/Tazobactam 3.375 GM in Sodium Chloride 0.9% 100 ML IVPB SCH (18:00)
[2020-08-12 19:20] LABS: Bilirubin 6 (Negative); Blood, Urine 10 (Negative); Clarity Clear (Clear); Glucose, Urine (Dipstick) >=1000 mg/dL (Negative); Ketone, Urine 5 mg/dL (Negative); Leukocyte 25 (Negative); Nitrite Negative (Negative); Protein, Urine (Dipstick) 15 mg/dl (Neg-Trace)
[2020-08-12 19:22] LABS: Urine Culture Reflex No No
[2020-08-12 19:40] LABS: Bacteria/HPF Rare-Few HPF (None Seen); RBC/HPF 0-3 HPF (0-3); Squamous Epithelial 0-3 HPF (0-3); WBC/HPF 0-3 HPF (0-3)
[2020-08-12] MEDS: Enoxaparin Sodium 40 MG/0.4 ML SYRINGE SC SCH (21:13)
[2020-08-12] MEDS: Piperacillin/Tazobactam 3.375 GM in Sodium Chloride 0.9% 100 ML IVPB SCH (21:15)
[2020-08-13 05:56] LABS: Lactic Acid 3.3 mmol/L (0.5-2.2)
[2020-08-13 05:57] LABS: Hemoglobin 8.2 g/dL (13.5-17.5); Mean Corpuscular HGB CONC 28.9 g/dL (32.0-36.0); Mean Corpuscular Hemoglobin 26.3 pg (27.0-33.0); Mean Platelet Volume 12.9 fl (7.4-10.4); Platelet Count 379 10x3/uL (150-450); RBC Distribution Width 27.9 % (11.5-14.5); Red Blood Cell (RBC) Count 3.12 10x6/uL (4.32-5.72); White Blood Cell (WBC) Count 24.1 10x3/uL (3.5-10.5)
[2020-08-13 06:00] LABS: Phosphorus 2.2 mg/dL (2.3-4.7)
[2020-08-13 06:02] LABS: ALT (SGPT) 79 U/L (8-55); AST (SGOT) 129 U/L (5-34); Albumin 2.9 g/dL (3.5-5.0); Alkaline Phosphatase 167 U/L (40-110); Anion Gap 16 mmol/L (10-20); BUN (Urea Nitrogen) 11 mg/dL (8.9-20.6); Bilirubin, Total 18.1 mg/dL (0.2-1.2); Calc. Creatinine Clearance 176 mL/min (70-130); Carbon Dioxide 23 mmol/L (22-29); Chloride 98 mmol/L (98-107); Globulin 3.6 g/dL (2.4-3.5); Glucose 170 mg/dL (70-105); Magnesium 2.2 mg/dL (1.6-2.6); Potassium 4.1 mmol/L (3.5-5.1); Protein, Total 6.5 g/dL (6.0-8.3); Sodium 133 mmol/L (136-145)
[2020-08-13 06:11] LABS: INR-International Normal Ratio 1.3; Prothrombin Time 13.7 sec (9.5-12.1)
[2020-08-13] MEDS: Piperacillin/Tazobactam 3.375 GM in Sodium Chloride 0.9% 100 ML IVPB SCH (06:37)
[2020-08-13] MEDS: Guaifenesin DM 100-10/5 ML UDCUP PO PRN (06:42)
[2020-08-13 07:01] LABS: Band 19 % (5-11); Lymphocytes 10 % (21-51); Monocytes 6 % (0-10); Neutrophil 65 % (42-75)
[2020-08-13 07:06] LABS: Anisocytosis MODERATE=16-30 cells (100X) (0-5/hpf); Hypochromia MODERATE=16-30 cells (100X) (0-5/hpf); Macrocytosis SLIGHT = 6-15 cells (100X) (0-5/hpf); Microcytosis SLIGHT = 6-15 cells (100X) (0-5/hpf); Polychromasia SLIGHT = 2-3 cells (100X) (0-2/hpf); Target Cells SLIGHT = 2-5 cells (100X) (0-1/hpf)
[2020-08-13 07:07] LABS: Large Platelets SLIGHT; Platelet Clumps SLIGHT; Platelet Morphology Comment Appears Adequate
[2020-08-13 07:09] LABS: MDiff Complete? YES; Manual Diff?? YES
[2020-08-13] MEDS: Acetaminophen 325 MG TAB PO PRN (07:19)
[2020-08-13] MEDS: Folic Acid 1 MG TAB PO SCH (08:44)
[2020-08-13] MEDS: Multivit, Therapeutic 1 TAB PO SCH (08:44)
[2020-08-13] MEDS: Thiamine 100 MG TAB PO SCH (08:44)
[2020-08-13] MEDS: Potassium Chloride 20 MEQ TAB PO SCH ×2 (08:44→17:26)
[2020-08-13] MEDS: prednisoLONE 15 MG/5 ML UDCUP PO SCH (08:45)
[2020-08-13] MEDS: HumaLOG 300 UNITS/3 ML VIAL SC PRN ×2 (16:42→21:15)
[2020-08-13] MEDS: Enoxaparin Sodium 40 MG/0.4 ML SYRINGE SC SCH (20:29)
[2020-08-13] MEDS: Mirtazapine 15 MG TAB PO SCH (20:32)
[2020-08-13] MEDS ORDERED: traMADol HCl 50 MG TAB PO SCH (21:15)
[2020-08-14] MEDS: HumaLOG 300 UNITS/3 ML VIAL SC PRN ×3 (05:13→15:56)
[2020-08-14 05:26] LABS: Hemoglobin 8.1 g/dL (13.5-17.5); Mean Corpuscular HGB CONC 29.1 g/dL (32.0-36.0); Mean Corpuscular Hemoglobin 26.4 pg (27.0-33.0); Mean Corpuscular Volume 90.6 fl (81.2-95.1); Mean Platelet Volume 12.9 fl (7.4-10.4); Platelet Count 395 10x3/uL (150-450); RBC Distribution Width 27.6 % (11.5-14.5); Red Blood Cell (RBC) Count 3.07 10x6/uL (4.32-5.72); White Blood Cell (WBC) Count 25.3 10x3/uL (3.5-10.5)
[2020-08-14 05:38] LABS: Anion Gap 16 mmol/L (10-20); BUN (Urea Nitrogen) 9 mg/dL (8.9-20.6); Calc. Creatinine Clearance 191 mL/min (70-130); Calcium 8.9 mg/dL (7.8-10.44); Carbon Dioxide 25 mmol/L (22-29); Chloride 99 mmol/L (98-107); Glucose 237 mg/dL (70-105); Potassium 4.7 mmol/L (3.5-5.1); Sodium 135 mmol/L (136-145)
[2020-08-14 06:04] LABS: Band 22 % (5-11); Lymphocytes 2 % (21-51); Monocytes 7 % (0-10)
[2020-08-14 06:05] LABS: Anisocytosis MODERATE=16-30 cells (100X) (0-5/hpf); Hypochromia MODERATE=16-30 cells (100X) (0-5/hpf); Macrocytosis SLIGHT = 6-15 cells (100X) (0-5/hpf); Microcytosis SLIGHT = 6-15 cells (100X) (0-5/hpf); Neutrophil 69 % (42-75); Polychromasia SLIGHT = 2-3 cells (100X) (0-2/hpf)
[2020-08-14 06:08] LABS: Large Platelets MODERATE; Platelet Clumps MODERATE; Platelet Morphology Comment Appears Adequate; Target Cells SLIGHT = 2-5 cells (100X) (0-1/hpf)
[2020-08-14 06:10] LABS: MDiff Complete? YES; Manual Diff?? YES
[2020-08-14] MEDS: Folic Acid 1 MG TAB PO SCH (09:01)
[2020-08-14] MEDS: Multivit, Therapeutic 1 TAB PO SCH (09:01)
[2020-08-14] MEDS: Potassium Chloride 20 MEQ TAB PO SCH ×2 (09:01→15:56)
[2020-08-14] MEDS: Thiamine 100 MG TAB PO SCH (09:02)
[2020-08-14] MEDS: prednisoLONE 15 MG/5 ML UDCUP PO SCH (09:02)
[2020-08-14] MEDS: Mirtazapine 15 MG TAB PO SCH (21:03)
[2020-08-14] MEDS: Enoxaparin Sodium 40 MG/0.4 ML SYRINGE SC SCH (21:03)
[2020-08-15] MEDS ORDERED: traMADol HCl 50 MG TAB PO SCH (02:15)
[2020-08-15 05:50] LABS: Anion Gap 16 mmol/L (10-20); BUN (Urea Nitrogen) 8 mg/dL (8.9-20.6); Calc. Creatinine Clearance 205 mL/min (70-130); Calcium 8.6 mg/dL (7.8-10.44); Carbon Dioxide 24 mmol/L (22-29); Chloride 95 mmol/L (98-107); Glucose 146 mg/dL (70-105); Sodium 131 mmol/L (136-145)
[2020-08-15 05:56] LABS: Hemoglobin 8.2 g/dL (13.5-17.5); Mean Corpuscular HGB CONC 29.8 g/dL (32.0-36.0); Mean Corpuscular Hemoglobin 26.5 pg (27.0-33.0); Mean Corpuscular Volume 88.7 fl (81.2-95.1); Platelet Count 410 10x3/uL (150-450); RBC Distribution Width 27.1 % (11.5-14.5); White Blood Cell (WBC) Count 24.6 10x3/uL (3.5-10.5)
[2020-08-15 07:54] LABS: Band 15 % (5-11); Lymphocytes 9 % (21-51); Monocytes 11 % (0-10); Neutrophil 65 % (42-75)
[2020-08-15 07:56] LABS: Anisocytosis MODERATE=16-30 cells (100X) (0-5/hpf)
[2020-08-15 07:57] LABS: Macrocytosis SLIGHT = 6-15 cells (100X) (0-5/hpf); Microcytosis MODERATE=15-30 cells (100X) (0-5/hpf); Polychromasia SLIGHT = 2-3 cells (100X) (0-2/hpf)
[2020-08-15 07:59] LABS: Hypochromia SLIGHT = 6-15 cells (100X) (0-5/hpf)
[2020-08-15 08:00] LABS: Dohle Bodies SLIGHT; Large Platelets SLIGHT; Platelet Clumps MODERATE; Platelet Morphology Comment Appears Increased
[2020-08-15 08:04] LABS: Target Cells MODERATE= 6-15 cells (100X) (0-1/hpf)
[2020-08-15 08:06] LABS: MDiff Complete? YES; Manual Diff?? YES
[2020-08-15] MEDS: Potassium Chloride 20 MEQ TAB PO SCH ×2 (09:02→17:34)
[2020-08-15] MEDS: Folic Acid 1 MG TAB PO SCH (09:03)
[2020-08-15] MEDS: Thiamine 100 MG TAB PO SCH (09:03)
[2020-08-15] MEDS: Sodium Bicarbonate Tab 325 MG TAB PO SCH ×3 (09:03→21:16)
[2020-08-15] MEDS: prednisoLONE 15 MG/5 ML UDCUP PO SCH (09:03)
[2020-08-15] MEDS: Multivit, Therapeutic 1 TAB PO SCH (09:03)
[2020-08-15] MEDS: HumaLOG 300 UNITS/3 ML VIAL SC PRN ×3 (12:47→22:15)
[2020-08-15] MEDS: Guaifenesin DM 100-10/5 ML UDCUP PO PRN (15:18)
[2020-08-15] MEDS: Enoxaparin Sodium 40 MG/0.4 ML SYRINGE SC SCH (21:05)
[2020-08-15] MEDS: Mirtazapine 15 MG TAB PO SCH (21:06)
[2020-08-16] MEDS: diphenhydrAMINE 25 MG CAP PO PRN (01:24)
[2020-08-16 06:24] LABS: INR-International Normal Ratio 1.3; Prothrombin Time 14.6 sec (9.5-12.1)
[2020-08-16 06:31] LABS: ALT (SGPT) 95 U/L (8-55); AST (SGOT) 114 U/L (5-34); Albumin 2.8 g/dL (3.5-5.0); Alkaline Phosphatase 176 U/L (40-110); Bilirubin, Total 17.6 mg/dL (0.2-1.2); Protein, Total 6.1 g/dL (6.0-8.3)
[2020-08-16 07:13] LABS: Bilirubin, Direct 13.5 mg/dL (0.1-0.3)
[2020-08-16] MEDS: Potassium Chloride 20 MEQ TAB PO SCH ×2 (09:05→16:37)
[2020-08-16] MEDS: prednisoLONE 15 MG/5 ML UDCUP PO SCH (09:06)
[2020-08-16] MEDS: Multivit, Therapeutic 1 TAB PO SCH (09:06)
[2020-08-16] MEDS: Folic Acid 1 MG TAB PO SCH (09:06)
[2020-08-16] MEDS: Thiamine 100 MG TAB PO SCH (09:07)
[2020-08-16] MEDS: HumaLOG 300 UNITS/3 ML VIAL SC PRN ×2 (16:24→22:32)
[2020-08-16] MEDS: Enoxaparin Sodium 40 MG/0.4 ML SYRINGE SC SCH (22:11)
[2020-08-16] MEDS: Mirtazapine 15 MG TAB PO SCH (22:13)
[2020-08-17 05:06] LABS: Hemoglobin 8.4 g/dL (13.5-17.5); Mean Corpuscular HGB CONC 29.7 g/dL (32.0-36.0); Mean Corpuscular Hemoglobin 26.2 pg (27.0-33.0); Mean Corpuscular Volume 88.2 fl (81.2-95.1); Platelet Count 372 10x3/uL (150-450); RBC Distribution Width 26.4 % (11.5-14.5); Red Blood Cell (RBC) Count 3.21 10x6/uL (4.32-5.72); White Blood Cell (WBC) Count 24.8 10x3/uL (3.5-10.5)
[2020-08-17 05:26] LABS: Anion Gap 17 mmol/L (10-20); BUN (Urea Nitrogen) 9 mg/dL (8.9-20.6); Calc. Creatinine Clearance 219 mL/min (70-130); Calcium 8.4 mg/dL (7.8-10.44); Carbon Dioxide 22 mmol/L (22-29); Chloride 97 mmol/L (98-107); Glucose 153 mg/dL (70-105); Potassium 3.9 mmol/L (3.5-5.1); Sodium 132 mmol/L (136-145)
[2020-08-17 06:41] LABS: Band 16 % (5-11); Eosinophils 1 % (0-10); Lymphocytes 3 % (21-51); Metamyelocyte 1 % (0-0); Monocytes 1 % (0-10); Neutrophil 77 % (42-75); Nucleated RBC 1 % (0); Reactive Lymphocytes 1 % (0-10)
[2020-08-17 06:43] LABS: Anisocytosis MODERATE=16-30 cells (100X) (0-5/hpf)
[2020-08-17 06:44] LABS: Hypochromia MODERATE=16-30 cells (100X) (0-5/hpf); Macrocytosis SLIGHT = 6-15 cells (100X) (0-5/hpf); Microcytosis SLIGHT = 6-15 cells (100X) (0-5/hpf); Polychromasia SLIGHT = 2-3 cells (100X) (0-2/hpf); Target Cells MODERATE= 6-15 cells (100X) (0-1/hpf)
[2020-08-17 06:45] LABS: Large Platelets MODERATE; Platelet Morphology Comment Appears Adequate
[2020-08-17 06:46] LABS: MDiff Complete? YES; Manual Diff?? YES
[2020-08-17] MEDS ORDERED: Potassium Chloride 20 MEQ TAB ONE (08:48)
[2020-08-17] MEDS: Thiamine 100 MG TAB PO SCH (08:53)
[2020-08-17] MEDS: Potassium Chloride 20 MEQ TAB PO SCH ×2 (08:53→17:40)
[2020-08-17] MEDS: Multivit, Therapeutic 1 TAB PO SCH (08:53)
[2020-08-17] MEDS: Folic Acid 1 MG TAB PO SCH (08:53)
[2020-08-17] MEDS: prednisoLONE 15 MG/5 ML UDCUP PO SCH (08:54)
[2020-08-17] MEDS: HumaLOG 300 UNITS/3 ML VIAL SC PRN ×2 (13:00→17:40)
[2020-08-17 19:37] VITALS: BMI 31.6
[2020-08-17] MEDS: Mirtazapine 15 MG TAB PO SCH (20:50)
[2020-08-17] MEDS: Enoxaparin Sodium 40 MG/0.4 ML SYRINGE SC SCH (20:50)
[2020-08-18] MEDS: Potassium Chloride 20 MEQ TAB PO SCH ×2 (08:54→18:00)
[2020-08-18] MEDS: Thiamine 100 MG TAB PO SCH (08:54)
[2020-08-18] MEDS: Multivit, Therapeutic 1 TAB PO SCH (08:54)
[2020-08-18] MEDS: prednisoLONE 15 MG/5 ML UDCUP PO SCH (08:55)
[2020-08-18] MEDS: Folic Acid 1 MG TAB PO SCH (08:55)
[2020-08-18] MEDS: Enoxaparin Sodium 40 MG/0.4 ML SYRINGE SC SCH (21:14)
[2020-08-18] MEDS: Mirtazapine 15 MG TAB PO SCH (21:14)
[2020-08-18] MEDS: HumaLOG 300 UNITS/3 ML VIAL SC PRN (22:22)
[2020-08-18] MEDS: diphenhydrAMINE 25 MG CAP PO PRN (22:28)
[2020-08-19 06:06] LABS: Anion Gap 15 mmol/L (10-20); BUN (Urea Nitrogen) 8 mg/dL (8.9-20.6); Calc. Creatinine Clearance 0 mL/min (70-130); Calcium 8.2 mg/dL (7.8-10.44); Carbon Dioxide 22 mmol/L (22-29); Chloride 99 mmol/L (98-107); Glucose 166 mg/dL (70-105); Potassium 3.7 mmol/L (3.5-5.1); Sodium 132 mmol/L (136-145)
[2020-08-19 06:28] LABS: Hemoglobin 8.2 g/dL (13.5-17.5); Mean Corpuscular HGB CONC 29.8 g/dL (32.0-36.0); Mean Corpuscular Hemoglobin 25.9 pg (27.0-33.0); Mean Corpuscular Volume 86.8 fl (81.2-95.1); Mean Platelet Volume 13.6 fl (7.4-10.4); RBC Distribution Width 25.5 % (11.5-14.5); Red Blood Cell (RBC) Count 3.17 10x6/uL (4.32-5.72); White Blood Cell (WBC) Count 28.2 10x3/uL (3.5-10.5)
[2020-08-19 06:35] LABS: Platelet Count 390 10x3/uL (150-450)
[2020-08-19 07:55] LABS: MDiff Complete? YES
[2020-08-19 07:57] LABS: Band 9 % (5-11); Lymphocytes 9 % (21-51); Monocytes 5 % (0-10); Neutrophil 77 % (42-75)
[2020-08-19 07:58] LABS: Anisocytosis SLIGHT = 6-15 cells (100X) (0-5/hpf); Hypochromia SLIGHT = 6-15 cells (100X) (0-5/hpf)
[2020-08-19 07:59] LABS: Stomatocytes SLIGHT = 2-5 cells (100X) (0-1/hpf)
[2020-08-19 08:00] LABS: Polychromasia SLIGHT = 2-3 cells (100X) (0-2/hpf)
[2020-08-19 08:11] VITALS: BP 110/66; TEMP 99.4
[2020-08-19] MEDS: Potassium Chloride 20 MEQ TAB PO SCH (08:32)
[2020-08-19] MEDS: Folic Acid 1 MG TAB PO SCH (08:32)
[2020-08-19] MEDS: Thiamine 100 MG TAB PO SCH (08:32)
[2020-08-19] MEDS: Multivit, Therapeutic 1 TAB PO SCH (08:32)
[2020-08-19] MEDS: prednisoLONE 15 MG/5 ML UDCUP PO SCH (08:33)
[2020-08-19] MEDS ORDERED: Sodium Bicarbonate Tab 325 MG TAB PO SCH (09:00)
== END 2020-08-19 10:46 | disposition home or self-care (01) | DRG 897 ==
LOC: CSHERS 09:26 → CSHTELE 14:51
PROVIDERS: ADMIT Internal Medicine; ATTEND Family Medicine
DX: F10.231 Alcohol dependence with withdrawal delirium (principal); K70.10 Alcoholic hepatitis without ascites; D64.9 Anemia, unspecified; D69.6 Thrombocytopenia, unspecified; I10 Essential (primary) hypertension; E11.9 Type 2 diabetes mellitus without complications; K72.90 Hepatic failure, unspecified without coma; F41.9 Anxiety disorder, unspecified; F32.9 Major depressive disorder, single episode, unspecified; E80.6 Other disorders of bilirubin metabolism; K80.20 Calculus of gallbladder without cholecystitis without obstruction; Z20.822 Contact with and (suspected) exposure to COVID-19
CPT/HCPCS: 36415; 36416; 71045; 74177; 76705; 80048; 80053; 80061; 80074; 80076; 80202; 80306; 80307; 81001; 81003; 82103; 82104; 82140; 82248; 82550; 82607; 82728; 82746; 83036; 83516; 83540; 83550; 83605; 83690; 83735; 84100; 85025; 85610; 85730; 86140; 86850; 86900; 86901; 87040; 87086; 87635; 93005; 93010; 94760; 96365; 96366; 96367; 96368; 96375; C9113; J1630; J1650; J1815; J2060; J2543; J3360; J3370; J3411; J3430; J3475; J3490; J7030; J7042; J7050; J7120; J7510; Q0163; U0003; U0005